=== PATIENT | female | born 1980 | race Caucasian/White ===

== ENCOUNTER 2021-01-31 11:23 | Outpatient (REF) | payer MEDICAID, SELFPAY | END 2021-01-31 11:24 | disposition home or self-care (01) | LOC: HO.LAB 11:23 | PROVIDERS: Visit Provider Internal Medicine | DX: Z20.822 Contact with and (suspected) exposure to COVID-19 (principal) | CPT/HCPCS: 36415; C9803; U0003; U0005 ==

== ENCOUNTER 2022-05-13 16:07 | Outpatient (REF) | payer MEDICAID, OTHER, SELFPAY ==
--- NOTE | ~2022-05-13 | CT_ITS ---
EXAMINATION: CT HEAD WITHOUT CONTRAST CLINICAL INFORMATION: Headache. Rule out intracranial bleed. COMPARISON: None TECHNIQUE: Contiguous axial imaging was performed from the skull base to vertex without intravenous administration of contrast. This CT examination was performed using dose optimization techniques as appropriate, variously including the following: *Automated exposure control *Adjustment of mA and/or kV according to patient size (this includes techniques or standardized protocols for targeted exams where dose is matched to indication/reason for exam; i.e. extremities or head) *Use of iterative reconstruction technique DLP: 1431 mGy-cm FINDINGS: There is no evidence of acute intracranial hemorrhage or territorial infarction. No abnormal mass effect or midline shift is seen. House to white matter differentiation is well preserved. No extra-axial fluid collections are identified. The ventricles are normal in size. There is no abnormal attenuation within the brain parenchyma. The osseous structures and soft tissues are normal. The mastoid air cells and visualized portions of the paranasal sinuses are well aerated. CT/CT head/brain wo con IMPRESSION: No acute intracranial pathology.
== END 2022-05-13 16:08 | disposition home or self-care (01) ==
LOC: HO.CT 16:07
PROVIDERS: Visit Provider Emergency Medicine
DX: R51.9 Headache, unspecified (principal)
CPT/HCPCS: 70450

== ENCOUNTER 2022-09-23 14:21 | Outpatient (REF) | payer MEDICAID, OTHER, SELFPAY ==
--- NOTE | 2022-09-23 09:00 | EMG_ITS ---
Please see scanned EMG / Nerve Conduction Report. MTDD
== END 2022-09-23 14:22 | disposition home or self-care (01) ==
LOC: HO.NEURO 14:21
PROVIDERS: Visit Provider Registered Nurse
DX: R20.2 Paresthesia of skin (principal)
CPT/HCPCS: 95885; 95913

== ENCOUNTER 2023-09-17 15:02 | Outpatient (REF) | payer MEDICAID, OTHER, SELFPAY ==
[2023-09-17 17:26] LABS: MANUAL DIFF FLAG NO
[2023-09-17 17:42] LABS: Estimated Average Glucose 85 mg/dL; Hemoglobin A1c % 4.6 % (<6.0)
[2023-09-17 17:49] LABS: Alanine Aminotransferase 22 U/L (0-31); Albumin Level 4.3 g/dL (3.5-5.0); Alkaline Phosphatase 58 U/L (39-117); Anion Gap 13 (12-20); Aspartate Amino Transferase 27 U/L (5-31); Bilirubin Total 0.3 mg/dL (0.0-1.0); Blood Urea Nitrogen 15 mg/dL (9-16); Calcium 9.5 mg/dL (8.4-10.2); Carbon Dioxide 26 mmol/L (22-29); Chloride 103 mmol/L (96-108); Cholesterol 198 mg/dL (<200); Estimated Glomerular Filt Rate > 60; Glucose Random 80 mg/dL (60-115); HDL Cholesterol 62 mg/dL (>40); LDL Cholesterol Calculated 110 mg/dL (<100); Potassium 4.5 mmol/L (3.3-5.1); Sodium 137 mmol/L (135-145); Total Protein 7.5 g/dL (6.5-8.0); Triglycerides 130 mg/dL (<150)
[2023-09-17 18:04] LABS: TSH reflex Free T4 1.15 uIU/mL (0.32-4.0)
[2023-09-17 18:10] LABS: Basophils Percent Auto 0.7 % (0-2); Eosinophils Percent Auto 0.7 % (0-4); Hematocrit 37.7 % (37.0-47.0); Hemoglobin 12.2 g/dl (12.0-16.0); Imm Gran Abs Auto 0.02 X10*3/uL (0.00-0.03); Imm Gran Pct Auto 0.4 % (0.0-0.4); Lymphocytes Absolute Auto 1.7 X10*3/uL (1.2-4.9); Lymphocytes Percent Auto 30.3 % (20-40); Mean Corpuscular HGB Conc 32.4 g/dl (31.0-35.0); Mean Corpuscular Hemoglobin 28.1 pg (27.0-33.0); Mean Corpuscular Volume 86.9 fL (80.0-98.0); Mean Platelet Volume 11.7 fL (9.4-12.3); Monocytes Absolute Auto 0.5 X10*3/uL (0.1-1.2); Monocytes Percent Auto 9.3 % (2-11); Neutrophils Absolute Auto 3.3 x10*3/uL (2.0-8.3); Neutrophils Percent Auto 58.6 % (45-73); Platelet Count 213 X10*3/uL (160-400); Red Blood Count 4.34 X10*6/uL (4.20-5.50); Red Cell Distribution Width 11.3 % (11.0-16.0); White Blood Count 5.7 X10*3/uL (4.8-10.8)
[2023-09-18 13:55] LABS: CT PCR NOT DETECTED (Not Detect.); NG PCR NOT DETECTED (Not Detect.)
[2023-09-20 04:14] LABS: HIV AB/AG Nonreactive (Nonreactive); HIV Num 1 0.06 S/CO (0.00-0.99)
[2023-09-21 18:09] LABS: HCV Log PCR <1.18 NOT DETECTED Log IU/mL (NOT DETECTED); HepC Viral Load <15 NOT DETECTED IU/mL (NOT DETECTED)
[2023-09-23 10:52] LABS: RPR Rapid Plasma Reagin NON-REACTIVE (NON-REACTIVE)
== END 2023-09-17 15:03 | disposition home or self-care (01) ==
LOC: HO.CHCLDS 15:02
PROVIDERS: Visit Provider Registered Nurse
DX: Z00.00 Encounter for general adult medical examination without abnormal findings (principal); Z11.3 Encounter for screening for infections with a predominantly sexual mode of transmission
CPT/HCPCS: 0353U; 36415; 80053; 80061; 83036; 84443; 85025; 86592; 87389; 87522

== ENCOUNTER 2024-05-23 09:09 | Outpatient (REF) | payer MEDICAID, OTHER, SELFPAY ==
--- NOTE | ~2024-05-23 | MM_ITS ---
EXAMINATION: MM SCREENING DIGITAL BREAST TOMOSYNTHESIS, BILATERAL CLINICAL INFORMATION: Screening. Asymptomatic. COMPARISON: Mammography: This is a baseline mammogram TECHNIQUE: Digital breast tomosynthesis is performed in both the craniocaudal and mediolateral oblique views along with computer-aided detection (CAD). Synthesized 2D images are generated from the tomosynthesis. FINDINGS: The breasts are heterogeneously dense, which may obscure small masses (ACR BI-RADS breast composition Category c). There are no significant masses, abnormal calcifications, or other abnormalities. MM/MM tomosynthesis screening BI IMPRESSION: No mammographic evidence of malignancy. ASSESSMENT: BI-RADS BI-RADS 1 - Negative RECOMMENDATION: Routine annual mammography screening. 1 year F/U This examination should not preclude the clinical evaluation of a suspicious palpable abnormality. This patient's information was entered into a reminder system with a target due date for their next mammogram.
== END 2024-05-23 09:10 | disposition home or self-care (01) ==
LOC: HO.MAMMO 09:09
PROVIDERS: PCP Registered Nurse; Visit Provider Registered Nurse
DX: Z12.31 Encounter for screening mammogram for malignant neoplasm of breast (principal)
CPT/HCPCS: 77063; 77067

== ENCOUNTER → 2024-05-23 09:45 | Outpatient (BNV) | payer SELFPAY | PROVIDERS: PCP Registered Nurse; Visit Provider Radiology Diagnostic Radiology | DX: Z12.31 Encounter for screening mammogram for malignant neoplasm of breast (principal) | CPT/HCPCS: 77063; 77067 ==

== ENCOUNTER 2024-07-03 18:15 | Emergency (ER) | payer MEDICAID, OTHER, SELFPAY ==
--- NOTE | ~2024-07-03 | CT_ITS ---
EXAMINATION: CT head/brain wo IV con, CT cervical spine wo IV con CLINICAL INFORMATION: Reason for Exam syncope and collapse, headache COMPARISON: None. TECHNIQUE: Contiguous axial imaging was performed from the skull base to vertex without intravenous contrast. Sagittal and coronal reformatted images were obtained. Additional CT scan of the cervical spine was performed without intravenous contrast. Sagittal and coronal reformatted images were obtained. This CT examination was performed using dose optimization techniques as appropriate, variously including the following: * Automated exposure control * Adjustment of mA and/or kV according to patient size (this includes techniques or standardized protocols for targeted exams where dose is matched to indication/reason for exam; i.e. extremities or head) Use of iterative reconstruction technique DLP: 626+183 mGy-cm FINDINGS: CT HEAD: There is no evidence of acute intracranial hemorrhage. No mass-effect or ventricular shift is noted. No acute, territorial loss of borjas-white differentiation. Empty sella turcica with borderline low-lying cerebellar tonsils. The ventricles and sulci are appropriate in size and configuration for the patient's stated age. No depressed calvarial fracture. The paranasal sinuses are well-aerated. The mastoid air cells are clear. CT CERVICAL SPINE: No prevertebral soft tissue swelling. The craniocervical junction is intact. Draining of the normal cervical lordosis. There is no significant spondylolisthesis. Vertebral body heights are normal without acute compression fracture. No suspicious osseous lesion. The intervertebral disc space heights are preserved. Visualized lung apices are clear. CT/CT cervical spine wo IV con IMPRESSION: No acute intracranial hemorrhage or territorial loss of borjas-white differentiation. No acute, displaced cervical spine fracture. Partially empty sella turcica with borderline low-lying cerebellar tonsils. Correlation for intracranial hypertension is suggested.
--- NOTE | 2024-07-03 18:27 | ED.NEUROSD ---
HPI - Neuro Symptoms/Deficit General Chief Complaint: Neuro Symptoms/Deficit Stated Complaint: Lt arm numbness/tingling, syncope Related Data Allergies Allergy/AdvReac Type Severity Reaction Status Date / Time No Known Allergies Allergy Verified 07/03/24 18:44 [facility] Social History Social History Advance Directives: No Advance Directives Information Provided: No Physical Exam Vital Signs: Vital Signs: Last Vital Signs Temp 98.6 F 07/03/24 18:39 Pulse 85 07/03/24 18:39 Resp 18 07/03/24 18:39 BP 132/93 H 07/03/24 18:39 Pulse Ox 96 07/03/24 18:39 O2 Del Method Room Air 07/03/24 18:39 BMI result Body Mass Index 19.9 Course Course Course Narrative: This is a Rapid Medical Examination (RME) performed by Marta Hathaway PA-C in triage. Full HPI, ROS, assessment and treatment plan per primary provider in the Main ED. 43 yo female presents to the ER for evaluation of a syncopal episode that occurred 30 minutes ago. She felt SOB and then passed out. She collapsed in the bedroom that was witnessed by her partner, no head strike. Reports left hand and finger tingling when she regained consciousness along with neck pain and headache. She is under a lot of stress. No hx syncope in the past. Neurologically intact in triage, strength is equal and symmetrical throughout. Steady gait. Speech is normal. Possible anxiety attack preceding the event. Plan: Labs, EKG, CT head/c-spine Medical Decision Making Lab Data 07/03/24 19:14 07/03/24 19:14 Labs: Lab Results 07/03/24 07/03/24 Range/Units 19:14 19:25 WBC 5.5 (4.8-10.8) X10*3/uL RBC 4.21 (4.20-5.50) X10*6/uL Hgb 11.9 L (12.0-16.0) g/dl Hct 35.4 L (37.0-47.0) % MCV 84.1 (80.0-98.0) fL MCH 28.3 (27.0-33.0) pg MCHC 33.6 (31.0-35.0) g/dl RDW 11.4 (11.0-16.0) % Plt Count 233 (160-400) X10*3/uL MPV 10.8 (9.4-12.3) fL Immature Gran % (Auto) 0.4 (0.0-0.4) % Neut % (Auto) 67.1 (45-73) % Lymph % (Auto) 22.5 (20-40) % [place] % (Auto) 8.7 (2-11) % Eos % (Auto) 0.4 (0-4) % Baso % (Auto) 0.9 (0-2) % Lymph # (Auto) 1.2 (1.2-4.9) X10*3/uL [place] # (Auto) 0.5 (0.1-1.2) X10*3/uL Eos # (Auto) 0.0 (0.0-0.4) X10*3/uL Baso # (Auto) 0.1 (0.0-0.2) X10*3/uL Abs Immat Gran (auto) 0.02 (0.00-0.03) X10*3/uL Absolute Neuts (auto) 3.7 (2.0-8.3) x10*3/uL Absolute Nucleated RBC 0.000 (0.0-0.012) X10*3/uL Nucleated RBC % (auto) 0.0 (0.0-0.2) /100WBC Sodium 139 (135-145) mmol/L Potassium 3.6 (3.3-5.1) mmol/L Chloride 109 H (96-108) mmol/L Carbon Dioxide 23 (22-29) mmol/L Anion Gap 11 L (12-20) BUN 15 (9-16) mg/dL Creatinine 0.73 (0.5-1.4) mg/dL Estim Creat Clear Calc 81.4 Estimated GFR > 60 Random Glucose 109 (60-115) mg/dL Calcium 9.2 (8.4-10.2) mg/dL Magnesium 1.8 (1.6-2.6) mg/dL Total Bilirubin 0.3 (0.0-1.0) mg/dL Direct Bilirubin 0.1 (0.0-0.5) mg/dL AST 22 (5-31) U/L ALT 18 (0-31) U/L Alkaline Phosphatase 52 (39-117) U/L Troponin I High Sens < 2.7 (<3.5-17.0) ng/L Total Protein 7.0 (6.5-8.0) g/dL Albumin 4.1 (3.5-5.0) g/dL TSH 1.29 (0.32-4.0) uIU/mL Urine Color Yellow Urine Appearance Cloudy Urine pH 6.0 (5.0-9.0) Ur Specific [place] 1.025 (1.005-1.025) Urine Protein Negative (Neg-Trace) mg/dL Urine Glucose (UA) Negative (Negative) mg/dL Urine Ketones Trace (Negative) mg/dL Urine Blood Negative (Negative) Urine Nitrite Negative (Negative) Ur Leukocyte Esterase Trace H (Negative) Urine RBC 0-2 (0-2) /HPF Urine WBC 6-10 H (0-5) /HPF Ur Squamous Epith Cells 11-20 (0-2) /HPF Urine Bacteria 1+ (None Seen) Hyaline Casts 0-2 (0-2) /LPF Urine Test NEGATIVE (NEGATIVE) Discharge Plan Discharge Clinical Impression: Syncope Qualifiers: Syncope type: unspecified Qualified Code(s): R55 - Syncope and collapse Patient Disposition: Left W/O Completing Treatment Discharge Date/Time: 07/04/24 00:52
[2024-07-03 18:39] VITALS: BP 132/93; PULSE 85; RESP 18; TEMP 37; O2SAT 96; BMI 19.9
--- NOTE | 2024-07-03 18:39 | ECG_ITS ---
Test Reason : NEURO SYMP Blood Pressure : / mmHG Vent. Rate : 081 BPM Atrial Rate : 081 BPM P-R Int : 174 ms QRS Dur : 074 ms QT Int : 352 ms P-R-T Axes : 070 069 057 degrees QTc Int : 408 ms Normal sinus rhythm Minimal voltage criteria for LVH, may be normal variant ( Sokolow-Davison ) Borderline ECG No previous ECGs available Referred By: Marie Hathaway Electronically Signed By:HIREN ROSALES
[2024-07-03 19:22] LABS: MANUAL DIFF FLAG NO
[2024-07-03 19:44] LABS: Basophils Absolute Auto 0.1 X10*3/uL (0.0-0.2); Basophils Percent Auto 0.9 % (0-2); Eosinophils Percent Auto 0.4 % (0-4); Hematocrit 35.4 % (37.0-47.0); Hemoglobin 11.9 g/dl (12.0-16.0); Imm Gran Abs Auto 0.02 X10*3/uL (0.00-0.03); Imm Gran Pct Auto 0.4 % (0.0-0.4); Lymphocytes Absolute Auto 1.2 X10*3/uL (1.2-4.9); Lymphocytes Percent Auto 22.5 % (20-40); Mean Corpuscular HGB Conc 33.6 g/dl (31.0-35.0); Mean Corpuscular Hemoglobin 28.3 pg (27.0-33.0); Mean Corpuscular Volume 84.1 fL (80.0-98.0); Mean Platelet Volume 10.8 fL (9.4-12.3); Monocytes Absolute Auto 0.5 X10*3/uL (0.1-1.2); Monocytes Percent Auto 8.7 % (2-11); Neutrophils Absolute Auto 3.7 x10*3/uL (2.0-8.3); Neutrophils Percent Auto 67.1 % (45-73); Platelet Count 233 X10*3/uL (160-400); Red Blood Count 4.21 X10*6/uL (4.20-5.50); Red Cell Distribution Width 11.4 % (11.0-16.0); White Blood Count 5.5 X10*3/uL (4.8-10.8)
[2024-07-03 20:02] LABS: Alanine Aminotransferase 18 U/L (0-31); Albumin Level 4.1 g/dL (3.5-5.0); Alkaline Phosphatase 52 U/L (39-117); Anion Gap 11 (12-20); Aspartate Amino Transferase 22 U/L (5-31); Bilirubin Direct 0.1 mg/dL (0.0-0.5); Bilirubin Total 0.3 mg/dL (0.0-1.0); Blood Urea Nitrogen 15 mg/dL (9-16); Calcium 9.2 mg/dL (8.4-10.2); Carbon Dioxide 23 mmol/L (22-29); Chloride 109 mmol/L (96-108); Creatinine Clr Calc Pharmacy 81.4; Estimated Glomerular Filt Rate > 60; Glucose Random 109 mg/dL (60-115); Magnesium 1.8 mg/dL (1.6-2.6); Potassium 3.6 mmol/L (3.3-5.1); Sodium 139 mmol/L (135-145)
[2024-07-03 20:13] LABS: Troponin-I High Sensitivity < 2.7 ng/L (<3.5-17.0)
[2024-07-03 20:23] LABS: TSH reflex Free T4 1.29 uIU/mL (0.32-4.0)
[2024-07-03 20:47] LABS: Appearance Urine Cloudy; Color Urine Yellow; Glucose Urine UA Negative (Negative); Leukocyte Esterase Urine Trace (Negative); Nitrite Urine Negative (Negative); Specific Gravity - Urine 1.025 (1.005-1.025); UMIC TRIGGER UACC YES; Urine Blood Negative (Negative); Urine Ketones Trace mg/dL (Negative); Urine Protein Negative (Neg-Trace)
[2024-07-03 20:50] LABS: UPreg QC Valid YES; Urine Pregnancy NEGATIVE (NEGATIVE)
[2024-07-03 21:00] LABS: Bacteria Urine 1+ (None Seen); Hyaline Casts Urine 0-2 /LPF (0-2); RBC Urine 0-2 /HPF (0-2); UACC Culture Trigger YES
== END 2024-07-04 00:52 | disposition left against medical advice (07) ==
PROVIDERS: Physician Assistant; Emergency Provider Emergency Medicine; PCP Registered Nurse
DX: R55 Syncope and collapse (principal); Z53.21 Procedure and treatment not carried out due to patient leaving prior to being seen by health care provider
CPT/HCPCS: 36415; 70450; 72125; 80048; 80076; 81001; 81025; 83735; 84443; 84484; 85025; 87086; 93005; 99283; 99284

== ENCOUNTER 2024-09-12 10:20 | Emergency (ER) | payer MEDICAID, OTHER, SELFPAY ==
[2024-09-12 10:23] VITALS: BP 140/80; PULSE 74; RESP 16; TEMP 37; O2SAT 98; BMI 21.4
--- NOTE | 2024-09-12 10:48 | ED_ITS ---
HPI - General Adult General Chief complaint: Headache Stated complaint: High BP Time Seen by Provider: 09/12/24 10:35 Source: patient Mode of arrival: ambulatory Limitations: no limitations History of Present Illness ED Provider: Driss AGUILAR HPI narrative: 43-year-old female with pmh of prescribed mild HTN presents to the ED for intermittent headache for 1 week that resolved with Tylenol. Patient denies any nausea, vomiting, fever, chills, loss of vision, photophobia, neck stiffness, paralysis of extremities, slurred speech, chest pain, shortness of breath, dizziness, ringing in the ear, or any recent head trauma. Patient states she has been under lot of stress due to family issues, brother being involved in a major accident, and working a lot. Patient admits to not sleeping enough hours and not really eating. Patient denies being suicidal or homicidal. Related Data Previous Rx's ?Medication ?Instructions ?Recorded naproxen 500 mg tablet 500 mg PO BID PRN pain 7 days #14 09/12/24 tabs Allergies Allergy/AdvReac Type Severity Reaction Status Date / Time No Known Allergies Allergy Verified 09/12/24 10:26 Review of Systems 2 Review of Systems: Resolved headache Yes all other systems are reviewed and are negative PMFSH Social History Social History Advance Directives: No Advance Directives Information Provided: Yes Do you have a plan to hurt others: No Plan Physical Exam ED Vital Signs: Vital Signs - 24 hr 09/12/24 10:23 Temperature 98.6 F Pulse Rate 74 Respiratory Rate 16 Blood Pressure 140/80 H Pulse Oximetry 98 Oxygen Delivery Method Room Air BMI result Body Mass Index 21.4 Const General: cooperative, healthy appearing, comfortable, no acute distress, well developed, alert, awake and Physically active Orientation/consciousness: patient oriented x3 HENMT Head: Yes normal to inspection, Yes No palpable skull fracture present, Yes normocephalic, Yes atraumatic, No abrasion, No Acrocyanosis present, No Lundberg's sign, No contusion, No cranial bruits, No hematoma, No laceration, No occipital foramen tenderness, No palpable skull fracture, No raccoon eyes, No scalp lesion, No scalp tenderness, No Temporal artery tenderness present and No periorbital ecchymosis Head images: 2 1. Patient states this is the area of headache. Negative for any tenderness, crepitus, ecchymosis, erythema, deformity, lymphadenopathy, or rash. Ears: hearing grossly normal bilaterally, external ears normal, TM's normal bilaterally, TM normal on the right, TM normal on the left, EAC's normal, mastoids normal and no periauricular adenopathy Throat: Yes posterior oropharynx normal, Yes tonsils normal and Yes uvula midline Eyes General: appearance normal, both eyes and all related structures Visual Wilks: normal visual wilks by confrontation Alignment and Position: alignment normal Periorbital: periorbital findings normal Eyelids: Yes eyelids normal Conjunctivae: conjunctivae normal Sclerae: sclerae normal Corneas: corneas normal Pupils: Equal, round and reactive pupils present EOM: EOMs intact bilaterally Direct Ophthalmoscopy: normal light reflex, no photophobia and no papilledema Neck Neck: Yes normal visual inspection, Yes full ROM, Yes no lymphadenopathy, Yes no meningeal signs, Yes trachea midline, Yes supple, No anterior neck swelling and No tender Chest Chest palpation & inspection: normal inspection of the chest and normal palpation of entire chest wall Resp Effort & Inspection: normal respiratory effort and able to speak in complete sentences Auscultation: clear to auscultation bilaterally Cardio Jugular venous distension: no JVD Heart sounds: S1 normal heart sound present and S2 normal heart sound present GI Inspection: Yes normal to inspection Palpation (GI): Soft to palpation, not firm, nontender, no guarding and not rigid General: No CVA tenderness and Yes no CVA tenderness Back/Spine/Pelvis Back: no CVA tenderness, No CVA tenderness and No back tenderness Skin General skin exam: no rashes or lesions noted, elasticity normal and turgor normal Neuro General: patient oriented x3, gait normal, tone normal, moves all extremities, Normal light touch and pain sensation, no meningeal signs, no focal motor deficits, CN's II-XI intact bilaterally and normal sensation to monofilament Cranial nerves: Yes Equal, round and reactive pupils present Extrem General: Yes normal to inspection, Yes full ROM and Yes capillary refill normal Psych Appearance: grossly normal, well kempt and not disheveled NIH Stroke Scale Internal: Initial- Upon Arrival Level of Consciousness: Alert Level of Consciousness Questions: Answers both questions correctly Level of Consciousness Commands: Performs both tasks correctly Best Gaze: Normal Visual: No visual loss Facial Palsy: Normal Motor Arm (Right): No drift Motor Arm (Left): No drift Motor Leg (Right): No drift Motor Leg (Left): No drift Limb Ataxia: Absent Sensory: Normal Best Language: No aphasia Dysarthia: Normal Extinction and Inattention: No abnormality Score: 0 Medical Decision Making Medical Decision Making MDM Narrative: 43-year-old female presents to ED for evaluation for resolving headache. Patient actually was trying to leave the ED and I went to evaluate patient in [facility]. Patient states her headache resolved with Tylenol. Patient states presently feeling well and does not have headache. Patient admits to being under lot of stress. NIH score is 0. Negative for any neuro deficits. Patient has no photophobia or neck stiffness. Not suspecting meningitis. Not suspecting encephalitis. Not suspecting brain bleed or brain mass. Not suspecting any skull fracture. Not suspecting temporal arteritis. Not suspecting aneurysm. Not suspecting any carotid vertebral dissection/occlusion. Blood pressure stable. Not suspecting myocardial infarction. Patient would like to leave. Presently not having any worrisome signs on exam. Labs imaging were discussed. Patient prefers to be discharged and returned if symptoms worsened. Patient explained worrisome signs and informed to return to the ED immediately if she has them. Not suspecting hypertensive urgency/emergency. Not suspecting posterior cerebellar stroke. Not suspecting stroke. Differential Diagnosis Differential Diagnoses: The differential diagnosis associated with the presentation includes (Headache, migraine, tension headahce) Admission/Observation Consideration of admission/observation: Escalation of care including admission/observation considered Independent Historian Clinical information obtained from an independent historian. History obtained from or confirmed by: Other (Patient) External Record Review External record reviewed: Other (prior visits) Prescription Management I considered prescription management with: Pain Medication Discharge Plan Discharge Clinical Impression: Tension headache, Headache Patient Disposition: Home, Self-Care Instructions: Tension Headache (ED), Acute Headache (ED), Hypertension (ED) Additional Instructions: Your blood pressure stable. Recommend documented your blood pressure at least twice a day for your follow-up with primary care provider. Recommend resting and finding coping methods to do with stress which will help with the tension headaches. Return to the ED immediately for any worsening headache, slurred speech, facial droop, loss of vision, paralysis of extremities, nausea, vomiting, fever, chills, neck pain, chest pain, shortness of breath, dizziness, weakness, change in vision, photophobia, or any other concerning symptoms. Prescriptions: New naproxen 500 mg tablet 500 mg PO BID PRN (Reason: pain) 7 Days Qty: 14 0RF Stand Alone Forms: Work/School Release Discharge Date/Time: 09/12/24 10:57 Print Language: Maldivian
== END 2024-09-12 10:57 | disposition home or self-care (01) ==
PROVIDERS: Emergency Provider Emergency Medicine; PCP Registered Nurse
DX: G44.209 Tension-type headache, unspecified, not intractable (principal); I10 Essential (primary) hypertension; R29.700 NIHSS score 0
CPT/HCPCS: 99281; 99283

== ENCOUNTER 2025-02-21 18:34 | Outpatient (REF) | payer MEDICAID, OTHER, SELFPAY ==
--- OUTSIDE RECORDS SUMMARY | 2025-02-21 18:37 | XMS_ITS | Encounter Summary ---
Author Organization [employer] Address [address] [place] [address] Care Team Providers Care Commissary Helper Name Role Phone TarunRosalinda mcclellan NADEEN Primary Care Provider [phone] Reason for Visit * Reason Comments uti symptoms Encounter Details Date Type Department Care Team ([facility] st Contact Info) Description 02/21/2025 3:00 PM EDT Office Visit [facility] [address] [place] [address] Tomi June MD [address] [place] [address] Dysuria (Primary Dx); UTI symptoms Social History Tobacco Use Types Packs/Day Years Used Date Smoking Tobacco: Never Passive Smoke Exposure: Never Smokeless Tobacco: Never Alcohol Use Standard Drinks/Week Comments Never 0 (1 standard drink = 0.6 oz pur e alcohol) Depression Answer Date Recorded Patient Health Questionnaire-9 Score 2 09/17/2023 Patient Health Questionnaire-9 Score 2 09/17/2023 Last PHQ-9: Questionnaire Data Not on file 1 11/17/2022 Housing Stability Answer Date Recorded What is your housing situation today? I have jose francisco 09/10/[address] you li ve. Do you have problems with any of the following? None of the above 09/10/2023 Food Insecurity Answer Date Recorded Within the past 12 months, y ou worried that your food would run out before you got money to buy more: Never True 09/10/2023 Within the past 12 months,th e food you bought just didn't last and you didn't have enough money to get more: Never True Transportation Answer Date Recorded In the past 12 months, has l ack of transportation kept you from medical appts, meetings, work or from getting things needed for daily living? No 09/10/2023 Utilities Answer Date Recorded In the past 12 months, has t he electric, gas, oil or water company threatened to shut off services in your home? No 09/10/2023 Depression Answer Date Recorded Patient Health Questionnaire-2 Score 0 09/17/2023 Comments Unknown Sex and Gender Information Value Date Recorded Sex Assigned at Female 09/14/2022 10:40 AM EDT Legal Sex Female 10:40 AM EDT Gender Identity Female 09/14/2022 10:40 AM EDT Sexual Orientation Choose not to disclose 2021 10:40 AM EDT documented as of this encounter Last Filed Vital Signs Vital Sign Reading Time Taken Comments Blood Pressure 131/86 02/21/2025 2:27 PM EDT Pulse 78 02/21/2025 2:27 PM EDT Temperature 36.7 ??C (98 ??F) 02/21/2025 2:27 PM EDT Respiratory Rate 17 02/21/2025 2:27 PM EDT Oxygen Saturation 99% 02/21/2025 2:27 PM EDT Inhaled Oxygen Concentration - - Weight 59.1 kg (130 lb 3.2 oz) 02/21/2025 2:27 P M EDT Height - - Body Mass Index 23.81 09/04/2024 3:10 PM EDT documented in this encounter Progress Notes * Tomi June MD - 02/21/2025 3:00 PM EDT Subjective Patient ID: Bina Sanders is a 44 y.o. female. 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 HPI Bina has 4 day h/o burning on urination, scant blood in urine. Denies fever, chills, n/v, vaginal discharge, abdominal or flank pain. Lives with boyfriend and daughter. LMP=3/7. 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 Never smoked. Patient Active Problem List Diagnosis Chloasma Chronic neck pain Healthcare maintenance Episodic tension-type headache, not intractable Syncope Dyspnea on exertion Otitis of right ear The following portions of the chart were reviewed this encounter and updated as appropriate: Tobacco Allergies Meds Problems Med Hx Surg Hx Fam Hx Review of Systems Constitutional: Negative for fever. Respiratory: Negative for shortness of breath. Cardiovascular: Negative for chest pain. Gastrointestinal: Negative for abdominal pain. Genitourinary: Positive for dysuria, frequency, hematuria and urgency. Negative for flank pain and vaginal discharge. Skin: Negative for rash. Neurological: Negative for headaches. Objective Physical Exam Constitutional: Appearance: Normal appearance. HENT: Right Ear: Tympanic membrane, ear canal and external ear normal. Left Ear: Tympanic membrane, ear canal and external ear normal. Nose: Nose normal. Mouth/Throat: Mouth: Mucous membranes are moist. Pharynx: Oropharynx is clear. Eyes: Conjunctiva/sclera: Conjunctivae normal. Pupils: Pupils are equal, round, and reactive to light. Cardiovascular: Rate and Rhythm: Normal rate and regular rhythm. Heart sounds: No murmur heard. Pulmonary: Effort: Pulmonary effort is normal. Breath sounds: Normal breath sounds. Abdominal: General: Abdomen is flat. Palpations: Abdomen is soft. Tenderness: There is no abdominal tenderness. There is no right CVA tenderness or left CVA tenderness. Musculoskeletal: General: Normal range of motion. Cervical back: No tenderness. Skin: Findings: No rash. Neurological: Mental Status: She is alert. Gait: Gait is intact. Psychiatric: Mood and Affect: Mood normal. Behavior: Behavior normal. Procedures Assessment/Plan Diagnoses and all orders for this visit: Dysuria Urine C&S, BV panel, and vaginal swab for GC/CT pending. Will call patient with results. Prescribed Macrobid. Return to clinic if not improving. - Culture, Urine, Routine - Bacterial Vaginosis Panel - Chlamydia/N. Gonorrhoeae RNA, TMA, Urogenitial - POCT urinalysis dipstick manually resulted Other orders - nitrofurantoin, macrocrystal-monohydrate, (Macrobid) 100 MG capsule; Take 1 capsule (100 mg) by mouth 2 times daily for 5 days. documented in this encounter Plan of Treatment Scheduled Orders Name Type Priority Associated Diagnoses Orde r Schedule Culture, Urine, Routine Microbiology Routine Dysuria Ordered: 02/21/2025 Bacterial Vaginosis Panel Microbiology Routine Dysuria Ordered: 02/21/2025 Chlamydia/N. Gonorrhoeae RNA, TMA, Urogenitial Microbiology Routine Dysuria Ordered: 02/21/2025 documented as of this encounter Procedures Procedure Name Priority Date/Time Associated Diagnosis Comments POCT URINALYSIS DIPSTICK Routine 02/21/2025 2:32 PM EDT UTI symptoms documented in this encounter Results * (ABNORMAL) POCT urinalysis dipstick manually resulted (02/21/2025 2:32 PM EDT) Color, UA Yellow Clarity, UA Clear Glucose, UA Negative Bilirubin, UA Negative Ketones, UA Negative Spec Grav, UA 1.020 Blood, UA Positive(A) Negative, None Detected Comment:small pH, UA 6.0 Protein, UA Negative Urobilinogen, UA 0.2 Leukocytes, UA Few 15(A) Negative, Rare, Trace Comment:small Nitrite, UA Negative Negative, None Detected Urine 02/21/2025 2:32 PM EDT Tomi June MD POINT OF CARE TEST ENTER/EDIT OR DERABLES Final Result documented in this encounter Visit Diagnoses Diagnosis Dysuria- Primary UTI symptoms documented in this encounter Additional Health Concerns Assessment Noted Time PHQ-9 Depression Total Score: 2 09/17/20 23 1:59 PM EDT documented as of this encounter Care Teams Commissary Helper Relationship Specialty Start Date End Date Rosalinda Marmolejo FNP [address] [place] [id number] PCP - General Family Medicine 02/05/23 documented as of this encounter
--- OUTSIDE RECORDS SUMMARY | 2025-02-21 18:37 | XMS_ITS | Encounter Summary ---
Author Organization [employer] Address [address] [facility] 7t [place] [address] Care Team Providers Care Machine Tester Name Role Phone Rosalinda Marmolejo NADEEN Primary Care Provider [phone] Encounter Details Date Type Department Care Team (Latest Contact Info) Description 02/21/2025 Travel Social History Tobacco Use Types Packs/Day Years [...] is your housing situation today? I have joseaustin francisco 09/10/[address] you [...] AM EDT documented as of this encounter Plan of Treatment Not on file documented as of this encounter Visit Diagnoses Not on filedocumented in this encounter Additional Health Concerns Assessment Noted Time PHQ-9 Depression Total Score: 2 09/17/20 23 1:59 PM EDT documented as of this encounter Care Teams Machine Tester Relationship Specialty Start Date End Date Rosalinda Marmolejo FNP [address] [place] [phone] PCP - General Family Medicine 02/05/23 documented as of this encounter
--- OUTSIDE RECORDS SUMMARY | 2025-02-21 18:37 | XMS_ITS | Clinical Summary ---
Author Organization [employer] Address [address] [facility] 7t [place] [address] Care Team Providers Care Contract Management Specialist Name Role Phone Rosalinda Marmolejo NADEEN Primary Care Provider [phone] Allergies No known active allergies Medications Acetaminophen Extra Strength 500 MG tablet Take 1,000 mg by mouth every 6 (six) hours if needed. 2 Active polyethylene glycol, PEG, 3350 (MiraLax) 17 GM/SCOOP powderIndication s:Constipation, unspecified constipation type Dissolve 17 g in 120 to 240 mL (4 to 8 ounces) of beverage to drink once daily as needed for constipation 527 g 2 3 Active magnesium oxide (Mag-Ox) 400 MG tabletIndication s:Episodic tension-type headache, not intractable Take 1 tablet (400 mg) by mouth at bedtime. 90 tablet 3 4 Active Multiple Vitamin (multivitamin) tabletIndication s:Healthcare maintenance Take 1 tablet by mouth Once per day. 90 tablet 3 4 Active ibuprofen 400 MG tabletIndication s:Chronic neck pain Take 2 tablets (800 mg) by mouth every 8 (eight) hours if needed for mild pain or moderate pain. 20 tablet 4 Active lisinopril-hydro CHLOROthiazide 10-12.5 MG tabletIndication s:Primary hypertension Take 1 tablet by mouth Once per day. 30 tablet 11 4 025 Active acetaminophen (Tylenol) 500 MG tabletIndication s:Other headache syndrome Take 2 tablets (1,000 mg) by mouth Once per day. Not to use this medication more than 3 times a week for headache. 30 tablet 4 Active nitrofurantoin, macrocrystal-mon ohydrate, (Macrobid) 100 MG capsule Take 1 capsule (100 mg) by mouth 2 times daily for 5 days. 10 capsule 5 025 Active Active Problems Problem Noted Date Diagnosed Date Syncope 07/10/2024 Dyspnea on exertion 07/10/2024 Otitis of right ear 07/10/2024 Episodic tension-type headache, not intractable 04/21/2024 Overview (04/21/2024): Continue with magnesium 400mg nightly Healthcare maintenance 09/17/2023 Assessment & Plan (04/21/2024 9:09 AM EDT): Cancer Screening: -Breast CA: mammo order 04/21/24 -Cervical CA: Following with [facility] in [place]. Last pap normal 2021, reports due 5 years (2026) -Colon CA: routine screening starting at 45 years old per ACS Routine Health Maintenance: -Last PE: 09/17/23 -Contraception: BTL -Optometry: Previous referral to [facility] Eye Care -Dental: referral to [facility] Dental 09/19/23 -BMD: routine screening starting at 65 y/o Assessment & Plan (09/19/2023 12:34 PM EST): Cancer Screening: -Breast CA: Routine mammograms starting at 45 y/o per ACS -Cervical CA: Following with [facility] in [place]. Last pap normal 2021, reports due 5 years (2026) -Colon CA: routine screening starting at 45 years old per ACS Routine Health Maintenance: -STI screening: negative April 2022. Repeat asymptomatic screening today -Contraception: BTL -Optometry: Previous referral to [facility] Eye Care -Dental: referral to [facility] Dental 09/19/23 -BMD: routine screening starting at 65 y/o Chronic neck pain 02/05/2023 Assessment & Plan (02/07/2023 12:13 PM EDT): -Much improvement reported -No hx of injury or accident, although does have repetitive motion at work -Discussed options with patient including PO medications, topical medications, trigger point injections, physical therapy, massage, heat/cold and stretching -CONTINUE tizanidine 2mg Q8H PRN -CONTINUE lidocaine patches PRN -Encouraged stretching, use of a tennis ball or foam roller as tolerated at home to points of tension in back Chloasma 06/10/2022 Encounters Date Type Department Care Team Description 02/21/2025 3:00 PM EDT Office Visit [facility] [address] [place] [address] Tomi June MD Dysuria (Primary Dx); UTI symptoms 02/21/2025 Travel 02/01/2025 10:30 AM EDT Office Visit [facility] OPTOM[facility]RY [address] [place], [place] [phone] Tahmina Sethi, OD Myopia of both eyes with astigmatism and presbyopia (Primary Dx) 02/01/2025 Travel from Last 3 Months Immunizations Name Administration Dates Next Due Hep B, adult 04/21/2024,09/17/2023,06/10/2022 Influenza injectable quadriv alent preservative free 09/17/2023,02/05/2023 Pfizer Covid-19 Vaccine 12+ Bivalent 02/05/2023 Tdap 06/10/2022 Family History Medical History Relation Name Comments Diabetes type II Maternal Grandmother Hypertension Mother Relation Name Status Comments Maternal Grandmother Mother Social History Tobacco Use Types Packs/Day Years Used Date Smoking Tobacco: Never Passive Smoke Exposure: Never Smokeless Tobacco: Never Tobacco Cessation:Counseling Given: Not Answered Alcohol Use Standard Drinks/Week Comments Never 0 [...] not to disclose 2021 10:40 AM EDT Last Filed Vital Signs Vital Sign Reading [...] oz) 02/21/2025 2:27 P M EDT Height 157.5 cm (5' 2 ) 09/04/2024 3:10 PM EDT Body Mass Index 23.81 09/04/2024 3:10 PM EDT Plan of Treatment Health Maintenance Due Date Last Done Comments CT Colonography 1979 Colonoscopy 1979 Colorectal Cancer Screening 1979 FIT DNA/Cologuard 1979 FIT 1979 FOBT 1979 Sigmoidoscopy 1979 Alcohol/Substance Use Screening 1991 Family Planning (PISQ) 1994 Pap Smear 2000 Cervical Cancer Screening 2009 HPV/Cotest 2009 COVID-19 Vaccine ( season) 2024 02/05/2023, 12/12/2021, 03/22/2021, Additional history exists Influenza Vaccine (#1) 2024 09/17/2023, 2022 Depression Screening 09/17/2024 09/17/2023, 09/17/20 SDOH Screening 09/17/2024 09/17/2023 Dental Oral Exam 01/05/2025 07/04/2024 Dental Prophylaxis 01/05/2025 07/04/2024 Mammogram 05/23/2025 05/23/2024 Dental X-Ray: Bitewings 07/05/2025 07/04/2024 Tobacco Screening 02/21/2026 02/21/2025 Dental X-Ray: Full Mouth 07/05/2027 07/04/2024 Lipid Panel 09/17/2028 09/17/2023 Zoster Vaccines (1 of 2) 2029 DTaP/Tdap/Td Vaccines (2 - Td or Tdap) 06/10/2032 06/10/2022 RSV Patients and Patients Aged 60 years or older (1 - 1-dose 75+ series) 2054 HIV Screening Completed 09/17/2023, 04/29/2022 Hepatitis C Screening Completed 09/17/2023, 022 Hepatitis B Vaccines Completed 04/21/2024, 09/17/2023, 06/10/2022 HIB Vaccines Aged Out No longer eligi ble based on patient's age to complete this topic HPV Vaccines Aged Out No longer eligi ble based on patient's age to complete this topic Hepatitis A Vaccines Aged Out No long er eligible based on patient's age to complete this topic IPV Vaccines Aged Out No longer eligi ble based on patient's age to complete this topic Meningococcal Vaccine Aged Out No genesis bethany eligible based on patient's age to complete this topic Pneumococcal Vaccine: Pediatrics (0 to 5 Years) and At-Risk Patients (6 to 49) Years) Aged Out No longer eligible based on patient's age to complete this topic RSV under 20 months Aged Out No longe r eligible based on patient's age to complete this topic Rotavirus Vaccines Aged Out No longer eligible based on patient's age to complete this topic Procedures Procedure Name Priority Date/Time Associated Diagnosis Comments POCT URINALYSIS DIPSTICK Routine 02/21/2025 2:32 PM EDT UTI symptoms PROPHYLAXIS - ADULT Routine 07/04/2024 2 :00 PM EDT Periodontal disease Dental caries INTRAORAL - COMPLETE SERIES OF RADIOGRAPHIC IMAGES Routine 07/04/2024 2:00 PM EDT Periodontal disease Dental caries COMPREHENSIVE ORAL EVALUATION - NEW OR ESTABLISHED PATIENT Routine 07/04/2024 2:00 PM EDT Periodontal disease Dental caries BI MAMMOGRAM SCREENING TOMOSYNTHESIS BILATERAL Routine 05/23/2024 9:58 AM EDT Encounter for screening mammogram for breast cancer HEPATITIS C VIRAL RNA, QUANTITATIVE, REAL-TIME PCR Routine 09/17/2023 3:17 PM EDT Encounter for routine history and physical examination of adult HIV 1/2 ANTIGEN/ANTIBODY, FOURTH GENERATION W/RFL Routine 09/17/2023 3:17 PM EDT Encounter for routine history and physical examination of adult LIPID PANEL, STANDARD Routine 09/17/2023 3:17 PM EDT Encounter for routine history and physical examination of adult from Last 3 Months or Most Recently Relevant to Health Maintenance Results * (ABNORMAL) POCT urinalysis dipstick manually [...] CARE TEST ENTER/EDIT OR DERABLES Final Result * BI Mammogram Screening Tomosynthesis Bilateral (05/23/2024 9:58 AM EDT) Anatomical Region Laterality Modality Breast Bilateral Mammography 05/23/2024 9:58 AM EDT Narrative 06/18/2024 3:45 PM EDT ? [facility] ? [address] ?[place], [place] [address] ? Mammography Report ? Signed ? Patient: Eris Sanders,Bina ?MR#: ?? [id number] ? : 1980 ?Acct:[id number] ? Age/Sex: 43 / F ?ADM Date: 05/23/24 ? Loc: HO.MAMMO ? Attending Dr: Rosalinda Marmolejo ROLLER MAKER ? Ordering Physician: Rosalinda Marmolejo ROLLER MAKER ?Results: 1Negat ?? kalyn ? Date of Service: 05/23/24 ?Follow Up: 1 Year From Orig ?? inal Mammogram ? Procedure(s): MM tomosynthesis screening BI ?? Accession Number(s): [id number] ? cc: Rosalinda Marmolejo ROLLER MAKER ? EXAMINATION: ?? MM SCREENING DIGITAL BREAST TOMOSYNTHESIS, BILATERAL ? CLINICAL INFORMATION: ? Screening. Asymptomatic. ? COMPARISON: ?? Mammography: This is a baseline mammogram ? TECHNIQUE: ?? Digital breast tomosynthesis is performed in both the craniocaudal and ?? mediolateral oblique views along with computer-aided detection (CAD). ?? Synthesized 2D images are generated from the tomosynthesis. ? FINDINGS: ?? The breasts are heterogeneously dense, which may obscure small masses ?? (ACR BI-RADS breast composition Category c). ? There are no significant masses, abnormal calcifications, or other ?? abnormalities. ? MM/MM tomosynthesis screening BI ?? IMPRESSION: ?? No mammographic evidence of malignancy. ? ASSESSMENT: ? BI-RADS BI-RADS 1 - Negative ? RECOMMENDATION: ?? Routine annual mammography screening. ? 1 year F/U ? This examination should not preclude the clinical evaluation of a ?? suspicious palpable abnormality. ? This patient's information was entered into a reminder system with a ?? target due date for their next mammogram. ? Dictated By: ?Meche Bruner MD ? Signed By: ?<Electronically signed by Meche Bruner MD in OV> ? 06/18/24 1541 ? DD/ 0958 ? TD/TT: ? Relationship Management Lead: ? Procedure Note Hodan Gay - 06/18/2024 [facility] [address] [place] [address] Mammography Report Signed Patient: Michael Fox#: [id number] : 1980Acct:[id number] Age/Sex: 43 / FADM Date: 05/23/24 Loc: HO.MAMMO Attending Dr: Rosalinda Marmolejo ROLLER MAKER Ordering Physician: Rosalinda MarmolejoPResults: 1Negat kalyn Date of Service: 05/23/24Follow Up: 1 Year From [facility] Mammogram Procedure(s): MM tomosynthesis screening BI Accession Number(s): [id number] cc: Rosalinda Marmolejo EXAMINATION: MM SCREENING DIGITAL BREAST TOMOSYNTHESIS, BILATERAL CLINICAL INFORMATION: Screening. Asymptomatic. COMPARISON: Mammography: This is a baseline mammogram TECHNIQUE: Digital breast tomosynthesis is performed in both the craniocaudal and mediolateral oblique views along with computer-aided detection (CAD). Synthesized 2D images are generated from the tomosynthesis. FINDINGS: The breasts are heterogeneously dense, which may obscure small masses (ACR BI-RADS breast composition Category c). There are no significant masses, abnormal calcifications, or other abnormalities. MM/MM tomosynthesis screening BI IMPRESSION: No mammographic evidence of malignancy. ASSESSMENT: BI-RADS BI-RADS 1 - Negative RECOMMENDATION: Routine annual mammography screening. 1 year F/U This examination should not preclude the clinical evaluation of a suspicious palpable abnormality. This patient's information was entered into a reminder system with a target due date for their next mammogram. Dictated By: Meche Bruner MD Signed By: <Electronically signed by Meche Bruner MD in OV> 06/18/24 1541 DD/ 0958 TD/TT: Relationship Management Lead: us Rosalinda SENIOR IMG BI PROCEDURES Final Result * Hepatitis C Viral RNA, Quantitative, Real-Time PCR (09/17/2023 3:17 PM EDT) Hepatitis C Viral Load <15 NOT DETECTED NOT DETECTED IU/mL [facility] HCV Log PCR <1.18 NOT DETECTED NOT DETECTED Log IU/mL [facility] Comment:This test was perfor med using Real-Time Polymerase ChainReaction.Reportable Range: 15 IU/mL to 100,000,000 IU/mL(1.18 Log IU/mL to 8.00 Log IU/mL).The analytical performance characteristics of thisassay have been determined by [employer].The modifications have not been cleared or approved bythe FDA. This assay has been validated pursuant to theCLIA regulations and is used for clinical purposes.For more information on this test, go to:http://education.Doximity/faq/GSJ47m2(This link is being provided for informational/educational purposes only.)THIS TEST WAS PERFORMED AT:[facility] [place] [id number] CRAMER MD Blood 09/17/2023 3:17 PM EDT 09/17/2023 5:24 PM EDT us Rosalinda SENIOR LAB BLOOD ORDERABLES Final Res ult Performing Organization Address [facility]/ZIP Co de Phone Number [facility] [address] [place] [phone] [phone] * HIV-1/2 Antigen and Antibodies, Fourth Generation, with Reflexes (09/17/2023 3:17 PM EDT) HIV AB/AG Nonreactive Nonreactive [facility] Comment:HIV-1 p24 Ag and/or HIV-1/HIV-2 Ab not detected.A test result that is nonreactive does not exclude thepossibility of exposure to or infection with HIV-1 and/orHIV-2. Nonreactive results in this assay for individualswith prior exposure to HIV-1 and/or HIV-2 may be due toantigen and antibody levels that are below the limit ofdetection of this assay.The [employer] HIV Ag/Ab Combo assay result andsupplemental assay results should be interpreted inconjunction with the patient's clinical presentation,history and other laboratory results. If the results areinconsistent with clinical evidence, additional testing issuggested to confirm the result. Blood Venous blood specimen / Unknown 09/17/2023 3:17 PM EDT 09/17/2023 5:24 PM EDT us Rosalinda Marmolejo [facility] BLOOD ORDERABLES Final Res ult Performing Organization Address [facility] Co de Phone Number [facility] [address] [place] [address] [phone] * (ABNORMAL) Lipid Panel, Standard (09/17/2023 3:17 PM EDT) Triglycerides 130 <150 mg/dL [facility] Comment:Desirable Triglyceri de: less than 150 mg/dLBorderline High Triglyceride 150-199 mg/dLHigh Triglyceride: 200-499 mg/dLVery High Triglyceride: greater than or equal to 5OO mg/dL Cholesterol 198 <200 mg/dL [facility] Comment:Desirable Cholestero l: less than 200 mg/dLBorderline High Cholesterol: 200-239 mg/dLHigh Cholesterol: greater than 239 mg/dL LDL Cholesterol Calculated 110(H) <100 mg/dL [facility] Comment:Desirable LDL: less than 100 mg/dLNear Optimal/Above Optimal LDL: 110- 129 mg/dLBorderline High LDL: 130-159 mg/dLHigh LDL: 160-189 mg/dLVery High LDL: greater than or equal to 190 mg/dL HDL Cholesterol 62 >40 mg/dL [facility] Comment:Desirable HDL: great er than 40 mg/dL Note: This HDL assay may give artificially low results in patients with liver disease. Blood Venous blood specimen / Unknown 09/17/2023 3:17 PM EDT 09/17/2023 5:24 PM EDT Rosalinda Marmolejo ROLLER MAKER LAB BLOOD ORDERABLES Final Res ult [facility] [address] [place] [address] [phone] from Last 3 Months or Most Recently Relevant to Health Maintenance Insurance [facility] - HSN FULL (MEDICAID) Care Teams Contract Management Specialist Relationship Specialty Start Date End Date Rosalinda Marmolejo FNP [address] [place] [phone] PCP - General Family Medicine 02/05/23
--- OUTSIDE RECORDS SUMMARY | 2025-02-21 18:37 | XMS_ITS | Referral Summary ---
Author Organization [facility] Address [address] [place] [address] Care Team Providers Care Geriatric Personal Care Aide Name Role Phone Teena Gordon MD Primary Care Provider Allergies No known active allergies Social History Tobacco Use Types Packs/Day Years Used Date Smoking Tobacco: Unknown Tobacco Cessation:Counseling Given: Not Answered Comments Unknown Sex and Gender Information Value Date Recorded Sex Assigned at Not on file Legal Sex Female 8:45 AM EDT Gender Identity Not on file Sexual Orientation Not on file Last Filed Vital Signs Vital Sign Reading Time Taken Comments Blood Pressure 131/79 09/19/2024 11:29 AM EST Pulse 73 08/24/2024 1:12 PM EDT Temperature - - Respiratory Rate 16 08/24/2024 1:12 PM EDT Oxygen Saturation 99% 08/24/2024 1:12 PM EDT Inhaled Oxygen Concentration - - Weight 54.4 kg (120 lb) 09/19/2024 11:29 AM EST Height 157.5 cm (5' 2 ) 09/19/2024 11:29 AM EST Body Mass Index 21.95 09/19/2024 11:29 AM EST Plan of Treatment Upcoming Encounters Date Type Department Care Team (Late st Contact Info) Description 03/05/2025 9:00 AM EDT Follow-Up [facility] 4th floor Cardiology Medicine [address] [place] [address] Scrap Breaker: Gabriela Low MD [address] [place] [phone] Insurance [facility] HSNO/FREE CARE Care Teams Geriatric Personal Care Aide Relationship Specialty Start Date End Date Teena Gordon MD [address] [place] [address] PCP - General Internal Medicine 07/14/24
--- OUTSIDE RECORDS SUMMARY | 2025-02-21 18:37 | XMS_ITS | Clinical Summary ---
Author Organization [facility] Address [address] [place] [address] Care Team Providers Care Education And Development Manager Name Role Phone Teena Gordon MD Primary [...] Info) Description 03/05/2025 9:00 AM EDT Follow-Up [facility] 4th floor Cardiology Medicine [address] [place] [address] It Systems Manager: Gabriela Low MD [address] [place] [phone] Health Maintenance Due Date Last Done Comments Cervical Cancer Screening 1979 Cologuard 1979 Colon Cancer Screening 1979 Colonoscopy 1979 FOBT / Fit Test 1979 HPV and Pap Smear 1979 Hepatitis C Screening 1979 Pap Smear 1979 Sigmoidoscopy 1979 Varicella Vaccines (1 of 2 - 13+ 2-dose series) 1992 Mammogram 2019 COVID-19 Vaccine ( season) 2024 02/05/2023, 12/12/2021, 03/22/2021, Additional history exists Alcohol/Substance Use Screening 11/15/2024 Depression Screening and Follow-Up 11/15/2024 Social Drivers of Health Annual Screening 11/15/2024 Influenza Vaccine (Season Ended) 2025 09/17/2023, 02/05/2023 DTaP,Tdap,and Td Vaccines (2 - Td or Tdap) 06/10/2032 06/10/2022 RSV Vaccine (60+ years old and patients) (1 - 1-dose 75+ series) 2054 HIV Screening Completed 09/17/2023, 110 01/2023, 04/29/2022 Hepatitis B Vaccines Completed 04/21/2024, 09/17/2023, 06/10/2022 Pneumococcal Vaccine: Pediatric (0-5 Years) and At-Risk Patients (6-50 Years) Aged Out No longer eligible based on patient's age to complete this topic Insurance [place] [address] HS/FREE CARE Care Teams Education And Development Manager Relationship Specialty Start Date End Date Teena Gordon MD [address] [place] [phone] PCP - General Internal Medicine 07/14/24
[2025-02-22 10:45] LABS: CT PCR NOT DETECTED (Not Detect.); NG PCR NOT DETECTED (Not Detect.)
[2025-02-22 11:26] LABS: Bacterial Vaginosis PCR NEGATIVE (Negative); Candida Group PCR NOT DETECTED (Not Detect); Candida glab krusei PCR NOT DETECTED (Not Detect); Trichomonas vaginalis PCR NOT DETECTED (Not Detect)
== END 2025-02-21 18:35 | disposition home or self-care (01) ==
LOC: HO.HHCLNP 18:34
PROVIDERS: Visit Provider Emergency Medicine
DX: R30.0 Dysuria (principal)
CPT/HCPCS: 81515; 87086; 87491; 87591

== ENCOUNTER 2025-09-17 14:27 | Outpatient (REF) | payer MEDICAID, OTHER, SELFPAY | END 2025-09-17 14:28 | disposition home or self-care (01) | LOC: HO.CHCLNP 14:27 | PROVIDERS: Visit Provider Registered Nurse | DX: R39.9 Unspecified symptoms and signs involving the genitourinary system (principal) | CPT/HCPCS: 87086; 87088; 87186 ==

== ENCOUNTER 2025-09-19 08:03 | Outpatient (REF) | payer MEDICAID, OTHER, SELFPAY ==
--- OUTSIDE RECORDS SUMMARY | 2025-09-19 08:12 | XMS_ITS | Clinical Summary ---
Author Organization [facility] Address [address] [place] [address] Care Team Providers Care Chuck Tender Name Role Phone Teena Gordon MD Primary [...] 09/19/2024 11:29 AM EST Plan of Treatment Health Maintenance Due Date Last Done Comments Cervical Cancer Screening 1979 Cologuard 1979 Colon Cancer Screening 1979 Colonoscopy 1979 FOBT / Fit Test 1979 HPV and Pap Smear 1979 Hepatitis C Screening 1979 Pap Smear 1979 Sigmoidoscopy 1979 Varicella Vaccines (1 of 2 - 13+ 2-dose series) 1992 Mammogram 2019 Alcohol/Substance Use Screening 11/15/2024 Depression Screening and Follow-Up 11/15/2024 Social Drivers of Health Annual Screening 11/15/2024 Basic Metabolic Panel 07/03/2025 07/03/2024 COVID-19 Vaccine ( season) 2025 02/05/2023, 12/12/2021, 03/22/2021, Additional history exists Influenza Vaccine (#1) 2025 09/17/2023, 2022 DTaP,Tdap,and Td Vaccines (2 - Td or Tdap) 06/10/2032 06/10/2022 HIV Screening Completed 09/17/2023, 01/2023, 04/29/2022 Hepatitis B Vaccines Completed 04/21/2024, 09/17/2023, 06/10/2022 Pneumococcal Vaccine: Pediatric (0-5 Years) and At-Risk Patients (6-50 Years) Aged Out No longer eligible based on patient's age to complete this topic Insurance [facility] HSNO/FREE CARE Care Teams Chuck Tender Relationship Specialty Start Date End Date Teena Gordon MD [address] [place] [address] [place] [address] PCP - General Internal Medicine 07/14/24
== END 2025-09-19 08:04 | disposition home or self-care (01) ==
LOC: HO.CHCLDS 08:03
PROVIDERS: Visit Provider Registered Nurse
DX: Z00.00 Encounter for general adult medical examination without abnormal findings (principal)
CPT/HCPCS: 36415; 84443